=== PATIENT | male | born 1995 | race Caucasian/White ===

== ENCOUNTER 2021-08-17 10:56 | Emergency (ER) | payer OTHER, SELFPAY ==
--- NOTE | ~2021-08-17 | XR_ITS ---
EXAMINATION: XR chest 2V DATE: 08/17/2021 13:10 INDICATION: Cough. TECHNIQUE: Frontal and lateral views of the chest were obtained. COMPARISON: None. FINDINGS: The chest demonstrates clear lungs without pneumonia, pleural effusion, or pneumothorax. Th e heart size is normal. IMPRESSION: 1. No acute cardiopulmonary disease. Reviewed, dictated and finalized at location A. [employer]
[2021-08-17 12:40] VITALS: BP 131/81; PULSE 96; RESP 16; TEMP 36.7; O2SAT 98
--- NOTE | 2021-08-17 13:02 | ED.GENADULT ---
HPI - General Adult General Chief complaint: Upper Respiratory Infection Stated complaint: cough,chest pain when coughing and breathing Source: patient Mode of arrival: ambulatory Limitations: no limitations History of Present Illness HPI narrative: Patient presents for evaluation of respiratory symptoms for last 2 weeks. He initially had a runny nose and occasional cough. He now reports fever, chills, productive cough of green sputum, shortness of breath, pleuritic chest pain, nausea with one episode of vomiting, diarrhea, and body aches. No recent sick contacts to his knowledge. He has not received COVID vaccination. He does not smoke. He tried taking Mucinex and DayQuil for symptoms with some improvement thereafter. Related Data Home Medications Medication Instructions Recorded Confirmed No Home Medications 08/17/21 08/17/21 Allergies Allergy/AdvReac Type Severity Reaction Status Date / Time No Known Allergies Allergy Verified 08/17/21 13:01 Review of Systems Review of Systems: CONSTITUTIONAL: Reports fever and chills. EYES: Denies visual changes, redness, or discharge. ENT: Reports sinus congestion, runny nose, sore throat CARDIOVASCULAR: Reports pleuritic chest pain. Denies chest pain otherwise. Denies palpitations, or edema. RESPIRATORY: Reports productive cough of green sputum with shortness of breath GASTROINTESTINAL: Reports nausea with one episode of vomiting. Reports diarrhea. GENITOURINARY: Denies dysuria or hematuria. SKIN: Denies rash or itching. MUSCULOSKELETAL: Reports generalized body NEUROLOGIC: Denies headache, numbness, dizziness, or weakness. PSYCHIATRIC: Denies anxiety or depression. FOR[facility]LY [facility] Past Medical History Medical History (Updated 08/17/21 @ 13:23 by TRINI Vargas, ) No pertinent past medical history Surgical History Surgical History History of eye surgery Family History Family History Mother No pertinent past medical history Social History Social History Smoking status: Never smoker Alcohol intake: never Substance use: never Living arrangements: with family Gender identity (if verbalized by the patient): Male Spiritual care concerns: No Exam Narrative: GENERAL: Well-appearing, well-nourished, and in no acute distress. HEAD: Normocephalic, atraumatic. EYES: PERRLA and EOMI. ENT: Nares clear, no rhinorrhea or epistaxis. Mucous membranes moist. Oropharynx without tonsillar hypertrophy exudate or other lesions. Bilateral TMs pearly chavira nonbulging NECK: Supple. No adenopathy or masses. No carotid bruits or JVD CHEST: Clear to auscultation. Cough present on exam. No respiratory distress. No wheezes rales or rhonchi HEART: Regular rate and rhythm. No murmur heard. Normal peripheral pulses. ABDOMEN: Soft, nontender, nondistended, normal active bowel sounds. EXTREMITIES: Normal range of motion. No edema. SKIN: Warm, dry, no rash. NEURO: No focal deficits. Alert and oriented x3. PSYCH: Normal mood and affect. Course Course Emergency Course: This is a 26-year-old male who presented with complaints of respiratory symptoms. Symptom onset was about 2 weeks ago. His influenza was negative and his chest x-ray was normal. Covid was positive. Saturations are normal and he is nontoxic-appearing. He should quarantine and remain hydrated. He should go to the ER for shortness of breath or worsening symptoms. Patient agreed with the care. Level of Care: Express Care Visit Vital Signs Vital signs: Vital Signs Temperature 36.7 C 08/17/21 12:40 Pulse Rate 96 08/17/21 12:40 Respiratory Rate 16 08/17/21 12:40 Blood Pressure 131/81 08/17/21 12:40 Pulse Oximetry 98 08/17/21 12:40 Temperature 36.7 C 08/17/21 12:40 Pulse Rate 96 08/17/21 12:40 Respirato
== END 2021-08-17 13:25 | disposition home or self-care (01) ==
PROVIDERS: Emergency Provider Nurse Practitioner
DX: U07.1 COVID-19 (principal)
CPT/HCPCS: 71046; 87426; 87804; 99213; C9803; G0463

== ENCOUNTER 2024-06-04 09:14 | Emergency (ER) | payer OTHER, SELFPAY ==
--- NOTE | ~2024-06-04 | XR_ITS ---
XR lumbar spine 2-3V 06/04/2024 10:08 Indication: Back pain Procedure: 3 views lumbar spine Comparison: No prior studies for comparison. Findings: Mild levocurvature of the lumbar spine. No fracture, subluxation or dislocation. There is d isc narrowing at L5-S1. No evidence for spondylolisthesis. Pedicles intact. Impression: 1: Mild lumbar spondylosis with levocurvature. Reviewed, dictated and finalized at location B. Impression: 1: Mild lumbar spondylosis with levocurvature.
[2024-06-04 09:22] VITALS: BP 131/81; PULSE 84; RESP 16; TEMP 36.4; O2SAT 100
--- NOTE | 2024-06-04 09:52 | ED.BACK ---
HPI - Back Pain/Injury General Chief Complaint: Back Pain/Injury Stated Complaint: back injury Time Seen by Provider: 06/04/24 09:25 History of Present Illness HPI Narrative: 28-year-old male presents emergency department for evaluation for low back pain. Patient reports he was cleaning his house yesterday when he had onset low back pain. Patient states the pain feels like it is in his lower back and does not radiate down his legs. Patient denies any falls or injuries. Patient did take cyclobenzaprine yesterday without significant improvement. Patient denies any change in bowel or bladder habits Related Data Allergies Allergy/AdvReac Type Severity Reaction Status Date / Time No Known Allergies Allergy Verified 08/17/21 13:01 Review of Systems Review of Systems: All systems reviewed & are unremarkable except as noted in HPI and below PMFSH Past Medical History Medical History (Updated 06/04/24 @ 10:56 by Taz Ruelas MD) No pertinent past medical history Surgical History Surgical History History of eye surgery Family History Family History Mother No pertinent past medical history Social History Social History Smoking status: Never smoker Alcohol intake: never Substance use: never Living arrangements: with family Gender identity (if verbalized by the patient): Male Spiritual care concerns: No Exam Narrative: APPEARANCE: Well appearing, no pain, no distress, well-nourished. HEAD: normocephalic, atraumatic. EYES: PERRLA/EOMI, conjunctivae clear. NOSE: Normal no drainage EARS:TMS clear with good light reflex. THROAT: Pharynx clear, no exudate. NECK: Supple. No adenopathy, no masses. RESPIRATORY: Airway patent, respirations nonlabored. Clear to auscultation bilaterally, no rales, rhonchi, wheezing. CARDIOVASCULAR: Regular rate and rhythm without murmurs rubs or gallops. ABDOMINAL: Soft, nontender, nondistended, normal bowel sounds MUSCULOSKELETAL: Low back pain, paraspinal muscle tenderness to palpation NEURO: Alert. Cranial nerves II through XII intact. Good gait. Good coordination SKIN: Warm, dry. Normal Color Course Vital Signs Vital signs: Vital Signs Temperature 97.6 F 06/04/24 09:22 Pulse Rate 84 06/04/24 09:22 Respiratory Rate 16 06/04/24 09:22 Blood Pressure 131/81 06/04/24 09:22 Pulse Oximetry 100 06/04/24 09:22 Oxygen Delivery Room Air 06/04/24 09:22 Temperature 97.6 F 06/04/24 09:22 Pulse Rate 80 06/04/24 11:15 Respiratory Rate 14 06/04/24 11:15 Blood Pressure 123/87 06/04/24 11:15 Pulse Oximetry 97 06/04/24 11:15 Oxygen Delivery Room Air 06/04/24 09:22 MDM - Back Pain/Injury MDM Narrative Medical decision making narrative: 28-year-old male presents emergency department for evaluation of lower back pain. Patient is neurologically intact. X-ray shows no acute fracture dislocation. Patient was advised to take ibuprofen for pain control provided additional cyclobenzaprine for muscle relaxant in addition to pain medication. Patient was encouraged to have close follow-up with his primary care physician. Differential Diagnosis Differential diagnosis: Likely lumbar radiculopathy, sciatica, strain of lumbar region, renal colic, pyelonephritis, thoracic back pain, AAA and other Imaging Data Radiologist's impression: Impressions Lumbar Spine X-Ray 06/04/24 10:11 Impression: 1: Mild lumbar spondylosis with levocurvature. Discharge Plan Discharge Clinical Impression: Back pain Patient Disposition: Home, Self-Care Condition: Stable Instructions: Antibiotic Form, Acute Low Back Pain (ED) Additional Instructions: Flexeril for muscle relaxant. Ibuprofen for pain control. Cozad as needed for additional pain control
[2024-06-04] MEDS: HYDROcodone/acetaminophen (*CRX) 5-325 MG TABLET 1 TAB PO (10:18)
[2024-06-04] MEDS: KETOROLAC 30 MG/ML VIAL (*BKC) IM (10:18)
[2024-06-04] MEDS: CYCLOBENZAPRINE HCL 10 MG TABLET PO (10:18)
[2024-06-04 11:15] VITALS: BP 123/87; PULSE 80; RESP 14; O2SAT 97
== END 2024-06-04 11:15 | disposition home or self-care (01) ==
PROVIDERS: Emergency Provider Emergency Medicine
DX: M54.50 Low back pain, unspecified (principal)
CPT/HCPCS: 72100; 96372; 99283; A9270; J1885

== ENCOUNTER 2024-07-08 11:04 | Outpatient (CLI) | payer OTHER, SELFPAY ==
--- NOTE | ~2024-07-08 | XR_ITS ---
EXAMINATION: XR thoracolumbar DATE: 07/08/2024 11:31 INDICATION: AP and lateral views of the lumbar and lower thoracic spine were obtained. TECHNIQUE: Lumbar spine radiographs dated 06/04/2024 COMPARISON: None. FINDINGS: 4 degree lumbar levocurvature. Sagittal alignment is normal. Vertebral body and disc heights are norm al. Lateral hip and sacroiliac joint spaces are normal. Chronic calcified nodule projecting over the right upper quadrant cephalad to the level of the kidney. IMPRESSION: 1. For degree lumbar levocurvature. Otherwise unremarkable lumbar and lower thoracic spine. 2. Nodular calcification in the right upper quadrant which could represent a calcified granuloma in t he liver or a calcified gallstone. Reviewed, dictated and finalized at location B. ICES REP IMPRESSION: 1. For degree lumbar levocurvature. Otherwise unremarkable lumbar and lower tho racic spine. 2. Nodular calcification in the right upper quadrant which could represent a ca lcified granuloma in the liver or a calcified gallstone.
== END 2024-07-08 11:05 | disposition home or self-care (01) ==
LOC: ANHIMG 11:11
PROVIDERS: Visit Provider Internal Medicine
DX: M41.86 Other forms of scoliosis, lumbar region (principal); R19.01 Right upper quadrant abdominal swelling, mass and lump; M54.50 Low back pain, unspecified
CPT/HCPCS: 72080